=== PATIENT | female | born 1955 | race Caucasian/White ===

== ENCOUNTER → 2017-03-14 | Day surgery (SDC) | payer BC, OTHER ==
[~2017-03-14] MED LIST: ACCURETIC PO; ACTOS PO; ADVAIR 500-501 EACH IH; AGGRENOX PO; AGGRENOX1 CAP PO; ALB/IPRATROPIUM/1 E1 INH; ALBUTEROL17 GM INH; AMITRIPTYLINE H25 MG PO; AMLODIPINE BESYL5 MG PO; APIDRA (NF100 UNITS/ SUBQ; APIDRA100 U/ML; ARIMIDEX1 MG PO; ASPIRIN PO; ASPIRIN81 M1 PO; AZOR 10/20 MG T1 TAB PO; BACLOFEN10 MG PO; BECLOMETHASONE D MC; BENTYL10 MG PO; BENZONATATE PO; BUPROPION HCL150 M3 PO; BUPROPION HCL75 MG PO; BUPROPION XL150 MG PO; BYDUREON P2 MG/0.65 SQ; CARVEDILOL12.5 MG PO; CELEXA PO; CELEXA20 MG PO; CIPRO250 MG PO; COMBIVENT INH; COMBIVENT INH14.7 GM INH; COMBIVENT MININEB INH; COMBIVENT RESPIM4 GM IN; COMBIVENT U/D3 M1 INH; COMBIVENT U/D3 M2 INH; COMBIVENT U/D3 ML INH; COREG PO; COREG12.5 MG PO; DIABETA5 M1 PO; DOXEPIN HCL25 MG PO; DOXEPIN HCL50 MG PO; DOXYCYCLINE HY100 M3 PO; EC-NAPROSYN500 MG PO; FLOVENT7.9 GM INH; FUROSEMIDE40 MG PO; FUROSEMIDE80 MG PO; GABAPENTIN PO; GABAPENTIN600 MG PO; GABAPENTIN800 MG PO; GLUCOTROL PO; GLUCOTROL XL PO; GLYBURIDE PO; HCTZ PO; HUMULIN N VIAL SUBQ; HUMULIN N100 UNITS/ INJ; HUMULIN R500 U/ML; HUMULIN R500 U/ML SQ; HUMULIN R500 U/ML SUBQ; HUMULIN R500 UNIT/1 SUBQ; HYDROCHLOROTHIA25 MG PO; HYDROCODON-ACE1 EAC5 PO; HYDROCODON-ACE1 EACH PO; HYDROXYZINE HCL25 M1 PO; HYDROXYZINE PAM25 MG PO; INVOKANA100 MG PO; JANUVIA100 MG PO; JANUVIA50 MG PO; KCL PO; KLOR-CON 88 ME1 PO; KLOR-CON PO; LANTUS100 U/ML SUBQ; LASIX PO; LASIX20 MG PO; LEVEMIR SUBQ; LEVEMIR100 U/ML SQ; LEVEMIR100 U/ML SUBQ; LEVEMIR100 UNITS/ SUBQ; LEVOTHYROXINE150 MCG PO; LEVOXYL100 MC1 PO; LEVOXYL150 MCG PO; LIPITOR40 MG PO; LISINOPRIL PO; LISINOPRIL/HCTZ; LISINOPRIL20 MG PO; LOPRESSOR PO; LORTAB 10-5001 EACH PO; LORTAB 5/500 TA1 TA1 PO; LORTAB 7.5-5001 TAB PO; METFORMIN PO; METOPROLOL TART25 MG PO; MICRO-K PO; MOBIC15 MG PO; MONTELUKAST SOD10 MG PO; MOTRIN600 MG PO; NAPROXEN PO; NEURONTIN PO; NEURONTIN300 MG PO; NEURONTIN600 MG PO; NEURONTIN800 MG PO; NITROGLYCERIN0.4 MG SL; NITROGLYGERIN0.4 MG SL; NITROGYLCERIN SUBLINGUAL; NITROQUICK0.4 MG SL; NITROSTAT0.4 MG SL; NORCO 10-325 TA1 TAB PO; NORVASC PO; NORVASC10 MG PO; OMEPRAZOLE BIC PO; OMEPRAZOLE20 M2 PO; OMEPRAZOLE40 M1 PO; OXYCODON-ACETA1 EAC1 PO; OXYGEN; PATIENT'S PHARMACY; PEPCID PO; PERCOCET 51 UDTAB 5/ PO; PERCOCET 7.5-31 EACH PO; PERCOCET7.5 PO; PHENERGAN PO; PHENERGAN12.5 MG PO; POTASSIUM CHLO10 ME1 PO; PREDNISONE PO; PRILOSEC PO; PRILOSEC20 M1 PO; PRILOSEC20 MG DOB; PRINIVIL40 MG PO; PROVENTIL17 GM IH; PROZAC PO; PROZAC40 MG PO; QVAR7.3 G1; QVAR7.3 G1 IH; QVAR7.3 G1 INH; REGLAN5 MG PO; REMERON15 MG PO; RONDEC-DM SYRU120 ML PO; SIMVASTATIN40 MG PO; SIMVASTATIN80 MG PO; SYNTHROID PO; SYNTHROID0.1 MG PO; SYNTHROID0.15 MG PO; SYNTHROID125 PO; TAMIFLU75 M1 PO; TESSALON200 MG PO; TOPAMAX25 MG PO; TOPAMAX50 MG PO; TOPIRAMATE25 MG PO; TORADOL10 MG PO; TRAZODONE HCL100 MG PO; TRAZODONE PO; TROKENDI XR100 MG PO; TRULICITY0.75 MG/0. SUBQ; TYLOX 5/500 CAP1 CAP PO; VENTOLIN5 MG/ML IH; VICODIN 5/500 T1 TAB PO; VISTARIL PO; WELLBUTRIN75 M1 PO; ZANAFLEX4 M1 PO; ZESTORETIC 10/11 TAB PO; ZESTORETIC 20/21 TAB PO; ZETIA PO; ZITHROMAX PO; ZITHROMAX1 G/PKT PO; ZOCOR PO; ZOFRAN PO; ZYBAN SR150 MG DOB; [UNRECOGNIZED DRUG - OTHER]; [UNRECOGNIZED DRUG - OTHER]; [UNRECOGNIZED DRUG - OTHER]; [UNRECOGNIZED DRUG - OTHER]; [UNRECOGNIZED DRUG - OTHER] INH; [UNRECOGNIZED DRUG - OTHER] SUBQ; [UNRECOGNIZED DRUG - REMARK]
--- NOTE | ~2017-03-14 | OR ---
Unit #: [id number] #: [id number] Patient: TANISHA LÓEPZ [id number] [address] [address] [id number] MR#: [id number] NAME: TANISHA LÓPEZ ROOM: Date of Procedure: 03/14/2017 Admission Date: 03/14/2017 Surgeon: Omar Valentine M.D. : 1955 Attending Physician: Omar Valentine M.D. Primary Care Physician: Alka Stephens M.D. OPERATIVE REPORT PROCEDURE PERFORMED Esophagogastroduodenoscopy with biopsy. INDICATIONS FOR PROCEDURE Persistent right upper quadrant pain, nausea, vomiting, undergoing evaluation with upper endoscopy. MEDICATIONS Monitored anesthesia. POSTOPERATIVE FINDINGS 1. Normal esophagus. 2. Gastritis appears chronic. Biopsy was taken. 3. Normal duodenum and distal duodenum. PLAN 1. Follow up on pathology report. 2. Continue with PPIs and symptomatic treatment. DESCRIPTION OF PROCEDURE The patient was explained of the procedure, risks, and benefits along with the risks and benefits of anesthesia. She was brought to the endoscopy room. Propofol anesthesia was given. Bite block was placed. The scope was passed down the mouth into esophagus, stomach, duodenum, and distal duodenum. Findings as described. Biopsies were taken. Gently, I pulled the scope out of the patient's mouth. She tolerated it well. Dictated by... Irais Watson/bradley TD: 03/14/2017 23:31 JOB #: [id number] CC: Laverne Grewal M.D. Unit #: [id number] #: [id number] Patient: TANISHA LÓPEZ OPERATIVE REPORT Page 1 of 1 X Omar Valentine MD X PROCEDURE OPERATIVE NOTE
== END | disposition home or self-care (01) ==
LOC: COPS 08:45
DX: K29.50 Unspecified chronic gastritis without bleeding (principal); E11.9 Type 2 diabetes mellitus without complications; I25.10 Atherosclerotic heart disease of native coronary artery without angina pectoris; I50.9 Heart failure, unspecified; E03.9 Hypothyroidism, unspecified; J45.909 Unspecified asthma, uncomplicated; K21.9 Gastro-esophageal reflux disease without esophagitis; M19.90 Unspecified osteoarthritis, unspecified site; Z88.5 Allergy status to narcotic agent; Z91.041 Radiographic dye allergy status; Z79.4 Long term (current) use of insulin; Z79.1 Long term (current) use of non-steroidal anti-inflammatories (NSAID); Z79.51 Long term (current) use of inhaled steroids; Z79.899 Other long term (current) drug therapy; Z98.51 Tubal ligation status; Z90.711 Acquired absence of uterus with remaining cervical stump; Z90.49 Acquired absence of other specified parts of digestive tract; Z96.651 Presence of right artificial knee joint; Z98.890 Other specified postprocedural states
CPT/HCPCS: 82947; 88305; 88312